=== PATIENT | male | born 1960 | race Two or more races ===

== ENCOUNTER 2022-10-23 07:28 | Emergency (ER) | payer MEDICAID ==
[~2022-10-23] VITALS: Ht 165.1 cm; Wt 90.0 kg
[2022-10-23 07:38] VITALS: BP 128/83
[2022-10-23 08:25] LABS: CLARITY,URINE CLOUDY (Clear); COLOR,URINE YELLOW (Yellow); GLUCOSE, URINE NEGATIVE (Neg); KETONES,URINE TRACE mg/dl (Neg); LEUKOCYTE ESTERASE ,URINE NEGATIVE (Neg); NITRITES, URINE NEGATIVE (Neg); OCCULT BLOOD,URINE LARGE (Neg); PH,URINE 5.5 (4.8-8.0); PROTEIN,URINE 30 mg/dl (Neg)
[2022-10-23 08:26] LABS: UA COLLECTION TYPE CLN CATCH MIDSTREAM
[2022-10-23 08:30] LABS: MUCUS STRANDS MANY /LPF (Neg)
[2022-10-23 08:32] LABS: RBC,URINE TNTC /HPF (0-2); RENAL CELLS, URINE MANY /HPF; TRANSITIONAL EPI CELLS,URINE MANY /HPF
[2022-10-23 08:33] LABS: BACTERIA,URINE 2+ /HPF (Neg)
[2022-10-23 08:35] LABS: SQUAMOUS EPITHELIAL CELL,UR MODERATE /LPF (FEW)
[2022-10-23] MEDS ORDERED: PHEN-786 PO (13:23)
[2022-10-23] MEDS ORDERED: SULF1TAB45 PO (13:23)
[2022-10-23] MEDS ORDERED: FLO0.4C PO (13:23)
== END 2022-10-23 13:54 | disposition home or self-care (01) ==
LOC: ER 07:28
DX: N39.0 Urinary tract infection, site not specified (principal); R31.9 Hematuria, unspecified; E78.00 Pure hypercholesterolemia, unspecified
CPT/HCPCS: 81001; 87088; 99283